=== PATIENT | male | born 1965 | race Caucasian/White ===

== ENCOUNTER 2021-07-29 09:22 | Emergency (ER) | payer OTHER ==
[2021-07-29] MEDS ORDERED: Ketorolac 30 MG/ML SDV ONE (10:18)
[2021-07-29] MEDS ORDERED: Cyclobenzaprine 10 MG Tab ONE (10:18)
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
[2021-07-29] MEDS ORDERED: HYDROmorphone 1 MG/ML Syringe IM ONE (10:40)
== END 2021-07-29 11:26 | disposition home or self-care (01) ==
LOC: JP.ED 09:22
DX: S13.4XXA Sprain of ligaments of cervical spine, initial encounter (principal); V89.2XXA Person injured in unspecified motor-vehicle accident, traffic, initial encounter
CPT/HCPCS: 96372; 99283; J1170